=== PATIENT | female | born 1950 ===

== ENCOUNTER 2021-01-19 18:38 | Inpatient (IN) | payer OTHER ==
[~2021-01-19] VITALS: Ht 165.1 cm; Wt 67.5 kg
[2021-01-19] MEDS ORDERED: GABA-1216 PO (19:07)
[2021-01-19] MEDS ORDERED: ATOR40TA28 PO (19:07)
[2021-01-19] MEDS ORDERED: OXYC5 PO (19:07)
[2021-01-19] MEDS ORDERED: LACO100 PO (19:07)
[2021-01-19] MEDS ORDERED: PREG25 PO (19:07)
[2021-01-19] MEDS ORDERED: ATOR20TA86 PO (19:13)
[2021-01-19] MEDS ORDERED: EZET10TA13 PO (19:13)
[2021-01-19] MEDS ORDERED: LEVE10006 PO (19:13)
[2021-01-19] MEDS ORDERED: OXYC-618 PO (19:13)
[2021-01-19] MEDS ORDERED: OMEP20CA12 PO (19:13)
[2021-01-19] MEDS ORDERED: ATEN-72 PO (19:13)
[2021-01-19] MEDS ORDERED: PREG75 PO (19:13)
[2021-01-19 20:28] LABS: APPEARANCE,URINE CLEAR (CLEAR); BILIRUBIN,URINE NEGATIVE (NEGATIVE); GLUCOSE, URINE (UA) NEGATIVE (NEGATIVE); KETONES,URINE NEGATIVE (NEGATIVE); LEUKOCYTE ESTERASE ,URINE NEGATIVE (NEGATIVE); NITRATE,URINE NEGATIVE (NEGATIVE); OCCULT BLOOD,URINE NEGATIVE (NEGATIVE); PH,URINE 6.5 (5.0-8.0); PROTEIN,URINE NEGATIVE (NEGATIVE); UROBILINOGEN,URINE 0.2 mg/dL (<=1.0)
[2021-01-19 20:37] LABS: AMPHET/METH SCREEN,URINE NEGATIVE (NEGATIVE); BARBITURATE SCREEN, URINE NEGATIVE (NEGATIVE); BENZODIAZEPINES SCREEN,URINE NEGATIVE (NEGATIVE); CANNABINOID SCREEN,URINE NEGATIVE (NEGATIVE); COCAINE SCREEN,URINE NEGATIVE (NEGATIVE); METHADONE SCREEN, URINE NEGATIVE (NEGATIVE); OPIATE SCREEN,URINE POSITIVE (NEGATIVE); PHENCYCLIDINE SCREEN,URINE NEGATIVE (NEGATIVE)
[2021-01-19 20:44] LABS: BASOPHILS % (AUTO) 1.1 % (0.0-2.0); EOSINOPHILS % (AUTO) 4.5 % (1.0-6.0); HEMATOCRIT 37.9 % (36-46); HEMOGLOBIN 12.2 g/dL (12.0-16.0); LYMPHOCYTES # (AUTO) 3.2 K/uL (1.0-4.8); LYMPHOCYTES % (AUTO) 31.4 % (22.0-44.0); MEAN CORPUSCULAR HEMOGLOBIN 28.7 pg (26.0-34.0); MEAN CORPUSCULAR HGB CONC 32.2 G/dL (31.0-37.0); MEAN CORPUSCULAR VOLUME 89 fL (80-100); MONOCYTES % (AUTO) 10.2 % (2.0-9.0); NEUTROPHILS # (AUTO) 5.4 K/uL (1.8-7.7); NEUTROPHILS % (AUTO) 52.8 % (40.0-70.0); RED BLOOD CELL COUNT(AUTO) 4.24 MIL/uL (4.00-5.20); RED CELL DISTRIBUTION WIDTH 17.3 % (11.5-14.5)
[2021-01-19 20:53] LABS: COVID AG,FIA SOURCE NASOPHARYNGEAL
[2021-01-19 20:54] LABS: PROTHROMBIN TIME 10.2 SEC (9.4-11.6)
[2021-01-19 20:56] LABS: AMMONIA 15 umol/L (11-32)
[2021-01-19 20:58] LABS: TROPONIN I < 0.02 ng/mL (0.00-0.05)
[2021-01-19 21:43] LABS: PLATELET COUNT (AUTO) 161 K/uL (150-450)
[2021-01-19 21:44] LABS: CALCIUM, TOTAL 9.4 mg/dL (8.8-10.5); CREATININE 1.25 mg/dL (0.60-1.30); POTASSIUM 4.6 mmol/L (3.5-5.1)
[2021-01-19 21:50] LABS: ALBUMIN 3.7 g/dL (3.4-5.0); BILIRUBIN,TOTAL 0.3 mg/dL (0.1-1.0)
[2021-01-19] MEDS ORDERED: LevETIRAcetam 500 MG TABLET PO SCH ×3 (22:00→22:29)
[2021-01-19] MEDS ORDERED: LACOSAMIDE 100 MG TABLET PO ONE (22:00)
[2021-01-19] MEDS ORDERED: BACL10TA PO (22:08)
[2021-01-19] MEDS ORDERED: LEVE500T53 PO (22:08)
[2021-01-19] MEDS ORDERED: ZOLPIDEM TARTRATE 5 MG TABLET PO PRN (22:15)
[2021-01-19] MEDS ORDERED: HYDROCODONE/ACETAMINOPHEN 5-325 MG TABLET PO PRN (22:15)
[2021-01-19] MEDS ORDERED: OxyCODONE HCL/ACETAMINOPHEN 10-325 MG TABLET PO PRN (22:15)
[2021-01-19] MEDS ORDERED: MAGNESIUM HYDROXIDE SUSPENSION 30 ML UDCUP PO PRN (22:15)
[2021-01-19] MEDS ORDERED: BISACODYL 10 MG RECTAL RECTAL SUPPOSITORY PR PRN (22:15)
[2021-01-19] MEDS ORDERED: IPRATROPIUM BROMIDE 0.5 MG/2.5 ML NEB SOLUTION NEB PRN (22:15)
[2021-01-19] MEDS ORDERED: ONDANSETRON HCL 4 MG/2 ML VIAL IVP PRN (22:15)
[2021-01-19] MEDS ORDERED: ACETAMINOPHEN 325 MG TABLET PO PRN (22:15)
[2021-01-19] MEDS ORDERED: ALBUTEROL SULFATE 2.5 MG/0.5 ML NEB SOLUTION NEB PRN (22:15)
[2021-01-19 23:45] VITALS: BP 105/55
[2021-01-20] MEDS ORDERED: SODIUM CHLORIDE 0.9% 500 ML IV ONE (00:21)
[2021-01-20] MEDS: HEPARIN SODIUM,PORCINE 5,000 UNITS/ML VIAL SQ SCH ×2 (00:23→08:00)
[2021-01-20 04:26] VITALS: BP 108/53
[2021-01-20 07:14] VITALS: BP 120/68
[2021-01-20] MEDS ORDERED: EZETIMIBE 10 MG TABLET PO SCH (09:00)
[2021-01-20] MEDS ORDERED: DOCUSATE SODIUM 100 MG CAPSULE PO SCH (09:00)
[2021-01-20] MEDS ORDERED: LevETIRAcetam 500 MG TABLET PO SCH ×3 (09:00→21:00)
[2021-01-20] MEDS ORDERED: ATORVASTATIN CALCIUM 20 MG TABLET PO SCH (09:00)
[2021-01-20] MEDS ORDERED: LACOSAMIDE 100 MG TABLET PO SCH (09:00)
[2021-01-20] MEDS ORDERED: PREGABALIN 75 MG CAPSULE PO SCH (09:00)
[2021-01-20] MEDS ORDERED: OMEPRAZOLE 20 MG CAPSULE PO SCH (09:00)
[2021-01-20] MEDS ORDERED: GABAPENTIN 300 MG CAPSULE PO SCH (09:00)
== END 2021-01-20 11:35 | disposition home or self-care (01) | DRG 917 ==
LOC: EMS 18:41 → 5N 21:00
PROVIDERS: ADMIT Hospitalist; ATTEND Hospitalist
DX: T40.601A Poisoning by unspecified narcotics, accidental (unintentional), initial encounter (principal); G92 Toxic encephalopathy; M54.9 Dorsalgia, unspecified; E78.5 Hyperlipidemia, unspecified; G40.909 Epilepsy, unspecified, not intractable, without status epilepticus; Z88.2 Allergy status to sulfonamides; Z88.8 Allergy status to other drugs, medicaments and biological substances; Y92.89 Other specified places as the place of occurrence of the external cause; J44.9 Chronic obstructive pulmonary disease, unspecified; Z91.19 Patient's noncompliance with other medical treatment and regimen; Z20.822 Contact with and (suspected) exposure to COVID-19
CPT/HCPCS: 51702; 83605; 87040; 87426; 93005; 99285; J1644; J7040; 36415-L1; 36415-TC; 71045-TC; 81003-TC; U0003